=== PATIENT | male | born 1990 | race Caucasian/White ===

== ENCOUNTER → 2016-07-20 | Outpatient (CLI) | payer OTHER ==
[~2016-07-20] MED LIST: ACYCLOVIR400 MG PO; ANAPROX DS550 MG PO; ATIVAN0.5 MG PO; ATIVAN1 MG PO; BENADRYL25 MG PO; BENTYL10 MG PO; CATAFLAM50 MG PO; CLEOCIN150 MG PO; EES400 MG PO; KETOROLAC10 MG PO; MEDROL DOSEPAK4 MG PO; MOTRIN600 MG PO; MOTRIN800 MG PO; Motrin,Rufen800 MG PO; NAPROSYN250 MG PO; NAPROSYN500 MG PO; NAPROXEN SOD550 MG PO; NAPROXEN220 MG PO; NORCO 5-325 TA1 EACH PO; NORFLEX100 MG PO; ORPHENADRINE C100 M1 PO; Orphenadrine C100 MG PO; PREDNISONE50 MG PO; PROTONIX40 MG PO; ROBITUSSIN DM 105 ML PO; TESSALON PERLE200 MG PO; TOPAMAX25 MG PO; VICODIN 5/500 505 MG PO; ZANTAC 150150 MG PO; ZITHROMAX Z PA250 MG PO; ZITHROMAX250 MG PO; ZOFRAN ODT4 MG SL; ZYRTEC10 MG PO
== END | disposition home or self-care (01) ==
LOC: RAD 16:49
DX: R07.1 Chest pain on breathing (principal); R06.02 Shortness of breath; R06.00 Dyspnea, unspecified

== ENCOUNTER → 2016-08-30 | Outpatient (CLI) | payer OTHER | END | disposition home or self-care (01) | LOC: CARD 08-20 07:30 | DX: R07.89 Other chest pain (principal); R07.1 Chest pain on breathing; R06.02 Shortness of breath; Z82.49 Family history of ischemic heart disease and other diseases of the circulatory system ==

== ENCOUNTER → 2016-09-06 | Outpatient (CLI) | payer OTHER ==
--- NOTE | ~2016-09-06 | PF ---
[place], [place] PULMONARY FUNCTION TEST NAME: CANDIS SANTANA JR [facility] #: [id number] UNIT #: [id number] ROOM: DOCTOR: MADDISON ROD MD,SALEEM BIRTHDATE: [birth year] DOS: 09/06/2016 The testing was done for this patient on 09/06/2016. ORDERED BY: Nata Capellan. HISTORY: The patient recorded as 26-year-old male, height of 65 inches, weight of 121 pounds with reported symptoms of shortness of breath with exertion. There were no past tobacco use. SPIROMETRY: The FVC was recorded 4.33 liters, 91% predicted value normal. FEV1 was noted at 3.73 liters, 94% predicted value normal as well. Ratio of FEV1/FVC recorded 86% normal as well. No postbronchodilator changes were noted. Flow volume loop was noted as normal. LUNG VOLUME: Thoracic gas volume recorded 84%, residual volume of 41%, total lung capacity of 81%. The patient's lung diffusion recorded 108%. The patient's airway resistance and passive conductance were noted partially abnormal with reversibility noted for the patient after bronchodilator test. FINAL IMPRESSION: The test was suggestive of possibility of mild reversible obstructive lung disease. The patient based on the current abnormal airway resistance and passive conductance test. Clinical correlation would be advised. SALEEM WASHBURN MD CM:PFREPORT:PULMONARY FUNCTION TEST [id number] SALEEM ROD MD
== END | disposition home or self-care (01) ==
LOC: CP 12:45
DX: R06.02 Shortness of breath (principal); R07.1 Chest pain on breathing; R07.89 Other chest pain; Z82.49 Family history of ischemic heart disease and other diseases of the circulatory system

== ENCOUNTER 2017-01-14 20:12 | Emergency (ER) | payer OTHER ==
[~2017-01-14] VITALS: Ht 165.1 cm; Wt 54.9 kg
[2017-01-14 20:52] LABS: BASO % 0.3 % (0.0-1.0); EOS # 0.1 10*3/uL (0.0-0.4); EOS % 0.6 % (1.0-4.0); HEMATOCRIT 44.9 % (42.0-52.0); HEMOGLOBIN 15.3 g/dl (14.0-18.0); LYMPH # 0.4 10*3/uL (1.3-4.4); LYMPH % 3.3 % (27.0-41.0); MEAN CORPUSCULAR HGB CONC 34.1 g/dl (33.0-37.0); MEAN PLATELET VOLUME 9.5 fl (9.6-12.3); MONO # 0.7 10*3/uL (0.1-1.0); MONO % 6.1 % (3.0-9.0); NEUT # 10.7 10*3/uL (2.3-7.9); NEUT % 89.4 % (47.0-73.0); PLATELET COUNT AUTOMATED 251 10*3/uL (130-400); RED BLOOD COUNT 5.28 10*6/uL (4.50-5.90); RED CELL DISTRI WIDTH 12.1 % (0-14.5)
[2017-01-14 21:08] LABS: ALBUMIN 4.3 gm/dl (3.1-4.5); ALKALINE PHOSPHATASE 91 U/L (45-117); BUN 17 mg/dl (7-24); CHLORIDE 102 mmol/L (98-107); CREATININE 1.06 mg/dL (0.70-1.30); POTASSIUM 3.3 mmol/L (3.5-5.1); SGOT/AST 37 IU/L (3-35); SGPT/ALT 36 U/L (12-78); SODIUM 137 mmol/L (136-145); TOTAL PROTEIN 8.5 gm/dL (6.4-8.2)
[2017-01-14 22:44] VITALS: BP 111/50
[2017-01-14] MEDS ORDERED: LEVAQUIN750 M1 PO (22:48)
== END 2017-01-14 23:03 | disposition home or self-care (01) ==
LOC: ED 20:12
PROVIDERS: Physician Assistant
DX: J06.9 Acute upper respiratory infection, unspecified (principal); Z88.0 Allergy status to penicillin; Z88.6 Allergy status to analgesic agent; Z88.8 Allergy status to other drugs, medicaments and biological substances; Z79.899 Other long term (current) drug therapy

== ENCOUNTER 2017-05-13 16:51 | Emergency (ER) | payer OTHER ==
[~2017-05-13] VITALS: Wt 54.9 kg
[~2017-05-13 16:51] MED LIST changes: +LEVAQUIN750 M1 PO
[2017-05-13 16:59] VITALS: BP 122/68
[2017-05-13] MEDS ORDERED: PREDNISONE10 MG PO (18:35)
== END 2017-05-13 18:45 | disposition home or self-care (01) ==
LOC: ED 16:51
DX: M25.571 Pain in right ankle and joints of right foot (principal); R03.0 Elevated blood-pressure reading, without diagnosis of hypertension; Z88.0 Allergy status to penicillin; Z88.6 Allergy status to analgesic agent; Z88.8 Allergy status to other drugs, medicaments and biological substances; Z91.018 Allergy to other foods

== ENCOUNTER 2017-06-06 15:41 | Emergency (ER) | payer OTHER ==
[~2017-06-06] VITALS: Ht 165.1 cm; Wt 54.9 kg
[~2017-06-06 15:41] MED LIST changes: +PREDNISONE10 MG PO
[2017-06-06 16:06] VITALS: BP 128/75
[2017-06-06] MEDS ORDERED: ZITHROMAX250 MG PO (18:18)
== END 2017-06-06 18:18 | disposition home or self-care (01) ==
LOC: ED 15:41
DX: J40 Bronchitis, not specified as acute or chronic (principal); Z79.899 Other long term (current) drug therapy; Z88.0 Allergy status to penicillin; Z88.1 Allergy status to other antibiotic agents; Z88.8 Allergy status to other drugs, medicaments and biological substances; Z88.5 Allergy status to narcotic agent

== ENCOUNTER 2021-04-15 04:10 | Emergency (ER) | payer OTHER ==
[~2021-04-15] VITALS: Ht 165.1 cm; Wt 59.4 kg
[~2021-04-15 04:10] MED LIST changes: +SEPTDS PO
[2021-04-15 04:16] VITALS: BP 119/62
== END 2021-04-15 06:12 | disposition home or self-care (01) ==
LOC: ED 04:10
DX: F41.9 Anxiety disorder, unspecified (principal); Z88.0 Allergy status to penicillin; Z88.8 Allergy status to other drugs, medicaments and biological substances; Z91.018 Allergy to other foods

== ENCOUNTER 2021-09-22 15:29 | Emergency (ER) | payer OTHER ==
[~2021-09-22] VITALS: Ht 165.1 cm; Wt 59.0 kg
[2021-09-22 16:13] VITALS: BP 145/81
[2021-09-22] MEDS ORDERED: NAPROXEN250 MG PO (17:55)
== END 2021-09-22 18:10 | disposition home or self-care (01) ==
LOC: ED 15:29
DX: M25.551 Pain in right hip (principal)

== ENCOUNTER → 2022-12-31 | Outpatient (CLI) | payer OTHER ==
[~2022-12-31] MED LIST changes: +NAPROXEN250 MG PO; +SYMB80 INH
== END | disposition home or self-care (01) ==
LOC: CARD 00:07
PROVIDERS: ATTEND Internal Medicine
DX: R07.89 Other chest pain (principal); R94.31 Abnormal electrocardiogram [ECG] [EKG]